=== PATIENT | male | born 1955 | race African-American/Black ===

== ENCOUNTER 2017-09-06 03:08 | Emergency (ER) | payer BC ==
[~2017-09-06] VITALS: Ht 182.9 cm; Wt 97.7 kg
[~2017-09-06 03:08] MED LIST: ATOR10TA69 PO; HYDR-523 PO; UNKNOWN ANTIBIOTIC
[2017-09-06 09:03] VITALS: BP 154/78
[2017-09-06] MEDS ORDERED: CEFTRIAXONE SODIUM 250 MG/VIAL IM ONE (09:30)
[2017-09-06] MEDS ORDERED: DIPHENHYDRAMINE 25MG CAPSULE PO ONE (09:30)
[2017-09-06] MEDS ORDERED: LIDOCAINE HCL 1% 20ML VIAL (Pyxis) INJ MC ONE (09:30)
== END 2017-09-06 10:08 | disposition home or self-care (01) ==
LOC: ER 04:32
DX: L03.114 Cellulitis of left upper limb (principal); I10 Essential (primary) hypertension; E78.00 Pure hypercholesterolemia, unspecified; F17.200 Nicotine dependence, unspecified, uncomplicated
CPT/HCPCS: 96372; 99283; J0696; J3490; Z7610; Q0163